=== PATIENT | male | born 1980 | race Caucasian/White ===

== ENCOUNTER 2016-11-22 16:07 | Emergency (ER) | payer MEDICARE, MEDICAID ==
[~2016-11-22] VITALS: Ht 177.8 cm; Wt 90.0 kg
[~2016-11-22 16:07] MED LIST: DIVA500T35 PO; EFAV1TAB2 PO; MONT10TA21 PO; QUET100T PO; VENL50TA44 PO
[2016-11-22] MEDS ORDERED: ABAC1TAB15 (16:15)
[2016-11-22] MEDS ORDERED: CARV25 PO (16:15)
[2016-11-22] MEDS ORDERED: LISI-660 PO (16:15)
[2016-11-22] MEDS ORDERED: TRAZ-147 PO (16:15)
[2016-11-22 20:18] LABS: BASOPHILS # (AUTO) 0.08 K/uL (0.00-0.20); EOSINOPHILS # (AUTO) 0.16 K/uL (0.00-0.70); HEMATOCRIT 35.4 % (41-53); HEMOGLOBIN 12.1 g/dL (13.5-17.5); LYMPHOCYTES # (AUTO) 3.4 K/uL (1.0-4.8); MEAN CORPUSCULAR HEMOGLOBIN 34.7 pg (26.0-34.0); MEAN CORPUSCULAR HGB CONC 34.1 G/dL (31.0-37.0); MEAN CORPUSCULAR VOLUME 102 fL (80-100); MONOCYTES # (AUTO) 0.6 K/uL (0.1-1.0); MONOCYTES % (AUTO) 7.5 % (2.0-9.0); NEUTROPHILS # (AUTO) 3.5 K/uL (1.8-7.7); NEUTROPHILS % (AUTO) 45.5 % (40.0-70.0); PLATELET COUNT (AUTO) 332 K/uL (150-450); RED BLOOD CELL COUNT(AUTO) 3.49 MIL/uL (4.50-5.90); RED CELL DISTRIBUTION WIDTH 14.1 % (11.5-14.5); WHITE BLOOD COUNT (AUTO) 7.7 K/uL (4.5-11.0)
[2016-11-22 20:30] LABS: CALCIUM, TOTAL 8.8 mg/dL (8.8-10.5); CREATININE 1.79 mg/dL (0.60-1.30); POTASSIUM 4.7 mmol/L (3.5-5.1)
[2016-11-22 20:36] LABS: ALBUMIN 3.4 g/dL (3.4-5.0); BILIRUBIN,TOTAL 0.3 mg/dL (0.1-1.0); TOTAL PROTEIN, SERUM 7.3 g/dL (6.4-8.2)
[2016-11-22 20:50] LABS: RBC MORPHOLOGY COMMENT ABNORMAL RBC MORPH
[2016-11-22 21:34] VITALS: BP 128/76
== END 2016-11-22 21:58 | disposition home or self-care (01) ==
LOC: EMS 16:10
DX: M79.671 Pain in right foot (principal); M79.672 Pain in left foot; I50.9 Heart failure, unspecified
CPT/HCPCS: 99284

== ENCOUNTER 2023-05-22 02:04 | Emergency (ER) | payer MEDICARE, OTHER ==
[~2023-05-22] VITALS: Ht 188 cm; Wt 135.0 kg
[~2023-05-22 02:04] MED LIST changes: +ABAC1TAB15; +CARV25 PO; +DIVA-112 PO; -DIVA500T35 PO; -EFAV1TAB2 PO; +LISI-892 PO; +MONT-35 PO; -MONT10TA21 PO; +TRAZ-257 PO; -VENL50TA44 PO
[2023-05-22] MEDS ORDERED: SODIUM CHLORIDE 0.9% 1,000 ML IV ONE ×2 (02:45→06:45)
[2023-05-22] MEDS ORDERED: ONDANSETRON HCL 4 MG/2 ML VIAL IVP ONE (02:45)
[2023-05-22 03:13] LABS: BASOPHILS % (AUTO) 0.2 % (0.0-2.0); EOSINOPHILS % (AUTO) 0.9 % (1.0-6.0); HEMATOCRIT 43.5 % (41-53); HEMOGLOBIN 14.6 g/dL (13.5-17.5); LYMPHOCYTES # (AUTO) 1.8 K/uL (1.0-4.8); LYMPHOCYTES % (AUTO) 11.8 % (22.0-44.0); MEAN CORPUSCULAR HEMOGLOBIN 31.8 pg (26.0-34.0); MEAN CORPUSCULAR HGB CONC 33.6 G/dL (31.0-37.0); MEAN CORPUSCULAR VOLUME 95 fL (80-100); MONOCYTES % (AUTO) 6.9 % (2.0-9.0); NEUTROPHILS # (AUTO) 11.9 K/uL (1.8-7.7); NEUTROPHILS % (AUTO) 80.2 % (40.0-70.0); PLATELET COUNT (AUTO) 362 K/uL (150-450); RED CELL DISTRIBUTION WIDTH 13.8 % (11.5-14.5); WHITE BLOOD COUNT (AUTO) 14.9 K/uL (4.5-11.0)
[2023-05-22 03:24] LABS: CALCIUM, TOTAL 9.9 mg/dL (8.8-10.5); CREATININE 1.77 mg/dL (0.60-1.30)
[2023-05-22 03:29] LABS: ALBUMIN 4.2 g/dL (3.4-5.0); BILIRUBIN,TOTAL 0.7 mg/dL (0.1-1.0); TOTAL PROTEIN, SERUM 7.9 g/dL (6.4-8.2)
[2023-05-22] MEDS ORDERED: DIPHENOXYLATE/ATROP 2.5-0.025 MG TABLET PO ONE (03:30)
[2023-05-22 04:59] LABS: APPEARANCE,URINE CLEAR (CLEAR); BILIRUBIN,URINE NEGATIVE (NEGATIVE); COLOR,URINE YELLOW (YELLOW); GLUCOSE, URINE (UA) >=1000 mg/dL (NEGATIVE); LEUKOCYTE ESTERASE ,URINE NEGATIVE (NEGATIVE); NITRATE,URINE NEGATIVE (NEGATIVE); OCCULT BLOOD,URINE NEGATIVE (NEGATIVE); PROTEIN,URINE 30-70 mg/dL (NEGATIVE); SPECIFIC GRAVITIY, URINE 1.032 (1.003-1.030); UROBILINOGEN,URINE <=1.0 mg/dL (<=1.0)
[2023-05-22 05:09] LABS: BACTERIA,URINE None Seen /HPF (None Seen); COARSE GRANULAR CASTS,URINE 0-2 /LPF (None Seen); HYALINE CASTS, URINE 0-2 /LPF (None Seen); RBC,URINE None Seen /HPF (0-2); SQUAMOUS EPITHELIAL CELL,UR Few /LPF (None Seen); WBC,URINE None Seen /HPF (0-5)
[2023-05-22 07:09] VITALS: BP 129/73; PULSE 74; RESP 17; TEMP 97.3
== END 2023-05-22 07:10 | disposition home or self-care (01) ==
LOC: EMS 02:07
DX: R19.7 Diarrhea, unspecified (principal); R11.2 Nausea with vomiting, unspecified; R10.9 Unspecified abdominal pain; F31.9 Bipolar disorder, unspecified; I50.9 Heart failure, unspecified
CPT/HCPCS: 99285; 74176; 96374; 96361; 80053; 81001; 83690; 85025; 36415; 93005; J2405; J7030